=== PATIENT | female | born 1965 | race Caucasian/White ===

== ENCOUNTER 2016-11-26 18:51 | Emergency (ER) | payer SELFPAY ==
[~2016-11-26] VITALS: Ht 170.2 cm; Wt 61.2 kg
[2016-11-26 19:05] VITALS: BP 129/93
[2016-11-26] MEDS ORDERED: MECLIZINE 12.5 MG TABLET. PO ONE (20:15)
[2016-11-26] MEDS ORDERED: HYDROcodone/APAP 5/325MG 1 TAB TABLET PO ONE (20:15)
[2016-11-26] MEDS ORDERED: ONDANSETRON ODT 4 MG TAB.RAPDIS PO ONE (20:15)
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
== END 2016-11-26 20:12 | disposition home or self-care (01) ==
LOC: ER 18:51
DX: S09.22XA Traumatic rupture of left ear drum, initial encounter (principal); S40.021A Contusion of right upper arm, initial encounter; Z88.5 Allergy status to narcotic agent; Z88.1 Allergy status to other antibiotic agents; Y08.89XA Assault by other specified means, initial encounter; Y93.89 Activity, other specified; Y99.8 Other external cause status; Y92.89 Other specified places as the place of occurrence of the external cause
CPT/HCPCS: 99284; J8597; Q0162

== ENCOUNTER 2017-05-06 03:40 | Emergency (ER) | payer SELFPAY ==
[~2017-05-06] VITALS: Ht 170.2 cm; Wt 62.6 kg
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
[2017-05-06 04:40] LABS: BACTERIA,URINE FEW /HPF (0-FEW); BILIRUBIN,URINE NEG (NEG); CLARITY,URINE CLEAR; COLOR,URINE YELLOW; GLUCOSE,URINE NEG (NEG); NITRITE,URINE NEG (NEG); RBC,URINE 0 /HPF (0-2); SQUAMOUS EPITHELIAL CELL,UR MOD /LPF; UROBILINOGEN,URINE 2 mg/dL (0.2 mg/dL)
[2017-05-06 04:41] LABS: TRICHOMONAS,URINE PRESENT
[2017-05-06 05:08] LABS: INFLUENZA A PATIENT NEGATIVE (NEGATIVE); INFLUENZA B PATIENT NEGATIVE (NEGATIVE)
[2017-05-06] MEDS ORDERED: GUAI1TBM10 PO (05:17)
[2017-05-06] MEDS ORDERED: DOXY100C14 PO (05:17)
[2017-05-06] MEDS ORDERED: ALBU6.7H IH (05:17)
[2017-05-06] MEDS ORDERED: METR500T PO (05:17)
[2017-05-06] MEDS ORDERED: DOXYCYCLINE HYCLATE 100 MG TABLET PO ONE (05:30)
[2017-05-06] MEDS ORDERED: cefTRIAXone IM 250 MG VIAL IM ONE (05:30)
[2017-05-06 05:37] VITALS: BP 117/75
--- NOTE | 2017-05-06 06:27 | EKG ---
[address] [address] Test Date: 2017-05-06 Test Time: 04:28:42 Pat Name: FLACO LENZ Department: Room: Gender: F Applications Consultant: TANNA : 1965 Requested By: HAYDEN CAPONE Order Number: [id number] Reading MD: Wilfredo Gant Measurements Intervals [place] Rate: 86 P: 72 [place]: 152 QRS: 83 QRSD: 78 T: 60 QT: 336 QTc: 405 Interpretive Statements SINUS RHYTHM NONSPECIFIC ST-T WAVE CHANGES. RI6.01 No previous ECG available for comparison Electronically Signed On 05-08-2017 10:07:03 FILM PRINTER by Wilfredo Gant
--- NOTE | 2017-05-06 07:13 | RAD ---
Chest, 2 views, 05/06/2017: History: Cough The heart size is normal. No pulmonary infiltrates are seen. There is no evidence of pleural fluid. IMPRESSION: No acute cardiopulmonary abnormality is detected.
[2017-05-07 15:09] LABS: CHLAMYDIA PROBE Positive (Negative)
== END 2017-05-06 05:37 | disposition home or self-care (01) ==
LOC: ER 03:40
DX: A59.01 Trichomonal vulvovaginitis (principal); J40 Bronchitis, not specified as acute or chronic; F17.210 Nicotine dependence, cigarettes, uncomplicated; Z88.5 Allergy status to narcotic agent; Z88.1 Allergy status to other antibiotic agents
CPT/HCPCS: 36415; 71046; 81001; 87086; 87491; 87591; 87804; 93005; 96372; 99285; J0696

== ENCOUNTER 2017-06-23 20:52 | Emergency (ER) | payer SELFPAY ==
[~2017-06-23] VITALS: Ht 170.2 cm; Wt 59.0 kg
[~2017-06-23 20:52] MED LIST: ALBU6.7H IH; DOXY100C14 PO; GUAI1TBM10 PO; METR500T PO
[2017-06-23] MEDS ORDERED: IBUPROFEN 600 MG TABLET. PO ONE (21:30)
[2017-06-23] MEDS ORDERED: traMADol 50 MG TABLET PO ONE (21:30)
--- NOTE | 2017-06-23 22:02 | RAD ---
CT HEAD AND CERVICAL SPINE WO dated 06/23/2017 9:39 PM Indication: Head pain neck [id number] Trauma from fall, headache and neck pain. No priors.. Comparison: No comparison is available. Technique: Contiguous axial imaging the head was performed from skull base to vertex. In addition, axial imaging of the cervical spine acquired with thin cut coronal and sagittal reconstruction. One or more of the following individualized dose reduction techniques were utilized for this examination: 1. Automated exposure control 2. Adjustment of the mA and/or kV according to patient size 3. Use of iterative reconstruction technique Findings: Ventricles and sulci are within normal limits for age. No midline shift or mass effect. Brain parenchyma is of normal attenuation. No hemorrhage or extra-axial collection. Posterior fossa and brainstem unremarkable. Minimal patchy low density in the right frontal white matter, nonspecific. Visualized paranasal sinuses and mastoid air cells are clear. No apparent calvarial abnormality. Images of the cervical spine acquired from skull base to mid T1. Straightening of the normal cervical lordosis, otherwise sagittal alignment is anatomic. Vertebral body heights are maintained. No prevertebral soft tissue swelling. Posterior elements are intact. No evidence of fracture. Mild hypertrophic change of the superior and inferior endplates throughout. Multilevel uncovertebral spurring. Mild broad-based posterior disc osteophyte complex at C5-C6 results and mild to moderate central stenosis. There is also mild broad-based bulge at C6-C7 resulting in minimal central canal narrowing. Multilevel facet arthropathy. There is mild bilateral foraminal narrowing at C5-C6. Visualized soft tissue structures unremarkable. Emphysematous changes at the lung apices. IMPRESSION HEAD: 1. No evidence of acute intracranial hemorrhage or mass. 2. Minimal patchy low density in the right frontal white matter, nonspecific. Impression cervical spine: 1. No evidence of fracture or malalignment. 2. Mild to moderate multilevel spondylosis. Electronically signed by: Misael Keys MD (06/23/2017 9:59 PM) [id number]
[2017-06-23 22:30] VITALS: BP 110/59
[2017-06-23] MEDS ORDERED: TRAM-48 PO (22:33)
[2017-06-23] MEDS ORDERED: IBUP600T16 PO (22:33)
--- NOTE | 2017-06-23 22:34 | PHYS DOC ---
Past History Past Medical History: Other Past Surgical History: Cancer Surgery Smoking: Cigarettes, Less than 1pk/day Alcohol Use: None Drug Use: None Adult General Chief Complaint Chief Complaint: MECHANICAL FALL HPI HPI Patient is a 52-year-old female who presents here today after a fall complaining of back pain facial pain and neck pain. Patient reports pain around her scalp area with a headache. Patient denies any other symptomatology. Patient has a nausea vomiting diarrhea fevers shakes chills cough cold rhinorrhea. Patient has a loss of consciousness. Patient has any dizziness or presyncope prior to the episode. Patient reports she thinks she tripped over something. Patient has any abdominal trauma. Patient reports she is currently back to her normal baseline self other than the pain that she is expressing. Review of systems: Constitutional: Denies fever or chills Eyes: Denies change in visual acuity, redness, or eye pain HENT: Denies nasal congestion or sore throat All other review systems are negative except as documented in the history of present illness portion. Tetanus status up-to-date Physical exam: Constitutional: Well developed, well nourished, no acute distress, non-toxic appearance. HENT: Normocephalic, atraumatic, bilateral external ears normal, nose normal. Patient does have tenderness to palpation with palpation of her scalp. No significant soft tissue swelling is appreciated. Patient does have soft tissue swelling her right periorbital region with some erythema and abrasion. Eyes: EOMI, conjunctiva normal, no discharge. Neck: Normal range of motion, no tenderness, supple, no stridor. Cardiovascular:Heart rate regular rhythm Lungs & Thorax: Bilateral breath sounds clear to auscultation no respiratory distress Abdomen: Bowel sounds normal, soft, no tenderness, no masses, no pulsatile masses. Skin: Warm, dry, no erythema, no rash. Back: No tenderness, no CVA tenderness. Extremities: No tenderness, no cyanosis, no clubbing, ROM intact, no edema. Neurologic: Alert and oriented X 3, normal motor function, normal sensory function, no focal deficits noted. Psychologic: Affect normal, judgement normal, mood normal. CT scan of head and cervical spine negative for any acute fractures. Assessment and plan This is a 52-year-old female who presents here today secondary to head trauma and the pain that occurred secondary to a fall. Patient's ER workup is been unremarkable. Patient's CT of her head and C-spine are negative for any acute pathology per the radiologist. Patient has been given Ultram as well as ibuprofen to assist with her pain. Patient will be discharged home with a prescription for the same instructions follow-up with her primary care doctor for further management of her discomfort if it persists. Current Medications Current Medications Current Medications Medications (Trade) Dose Ordered Sig/Louie Start Time Stop Time Status Last Admin Dose Admin Ibuprofen (Motrin) 600 mg 1X ONCE 06/23/17 21:30 06/23/17 21:37 DC 06/23/17 21:44 600 MG Tramadol HCl (Ultram) 50 mg 1X ONCE 06/23/17 21:30 06/23/17 21:37 DC 06/23/17 21:45 50 MG Allergies Allergies Allergies Coded Allergies Type Severity Reaction Last Updated Verified codeine Allergy Unknown 11/26/16 Yes erythromycin base Allergy Unknown 11/26/16 Yes Current Patient Data Vital Signs Vital Signs Date Time Temp Pulse Resp B/P (MAP) Pulse Ox O2 Delivery O2 Flow Rate FiO2 06/23/17 21:45 18 18 Room Air 06/23/17 21:01 98.2 104 EKG EKG [] Radiology/Procedures Radiology/Procedures [] Course & Med Decision Making Course & Med Decision Making Pertinent Labs and Imaging studies reviewed. (See chart for details) [] Dragon Disclaimer Dragon Disclaimer This electronic medical record was generated, in whole or in part, using a voice recognition dictation system. Departure Departure: Impression: Primary Impression: Head injury Additional Impression: Periorbital ecchymosis of right eye Disposition: HOME, SELF-CARE Condition: IMPROVED Referrals: PCP,NO (PCP) Patient Instructions: Head Injury, Adult Scripts Tramadol Hcl (ULTRAM) 50 Mg Tablet 50 MG PO PRN Q6HRS Y for PAIN, #10 TAB Prov: GERALD BRIAN MD 06/23/17 Ibuprofen (IBUPROFEN) 600 Mg Tablet 600 MG PO QID Y for PAIN, #20 Prov: GERALD BRIAN MD 06/23/17 Problem Qualifiers GERALD BRIAN MD Jun 23, 2017 22:34
== END 2017-06-23 22:35 | disposition home or self-care (01) ==
LOC: ER 20:52
DX: S09.90XA Unspecified injury of head, initial encounter (principal); S05.11XA Contusion of eyeball and orbital tissues, right eye, initial encounter; M54.2 Cervicalgia; M54.9 Dorsalgia, unspecified; Z88.5 Allergy status to narcotic agent; F17.210 Nicotine dependence, cigarettes, uncomplicated; Z88.1 Allergy status to other antibiotic agents; W19.XXXA Unspecified fall, initial encounter; Y93.89 Activity, other specified; Y99.8 Other external cause status; Y92.89 Other specified places as the place of occurrence of the external cause
CPT/HCPCS: 70450; 72125; 99284-25

== ENCOUNTER 2017-08-28 11:05 | Inpatient (IN) | payer SELFPAY ==
[~2017-08-28] VITALS: Ht 170.2 cm; Wt 59.0 kg
[~2017-08-28 11:05] MED LIST changes: +IBUP600T16 PO; +TRAM-48 PO
[2017-08-28 11:33] LABS: BASO % 0 % (0-3); EOS % 0 % (0-3); HEMATOCRIT 48.4 % (36.0-47.0); HEMOGLOBIN 16.5 g/dL (12.0-15.5); LYMPH # 0.7 x10^3/uL (1.0-4.8); LYMPH % 5 % (24-48); MEAN CORPUSCULAR HEMOGLOBIN 32 pg (25-35); MEAN CORPUSCULAR HGB CONC 34 g/dL (31-37); MEAN CORPUSCULAR VOLUME 93 fL (79-100); MONO # 0.2 x10^3/uL (0.0-1.1); MONO % 1 % (0-9); NEUT # 12.1 x10^3uL (1.8-7.7); NEUT % 93 % (31-73); PLATELET COUNT 265 x10^3/uL (140-400); RED BLOOD COUNT 5.19 x10^6/uL (3.50-5.40); RED CELL DISTRIBUTION WIDTH 12.8 % (11.5-14.5); WHITE BLOOD COUNT 12.9 x10^3/uL (4.0-11.0)
[2017-08-28] MEDS ORDERED: IV NORMAL SALINE 1,000ML 1,000 ML IV ONE ×4 (11:45→13:45)
[2017-08-28 11:46] LABS: ALBUMIN 3.1 g/dL (3.4-5.0); ALBUMIN/GLOBULIN RATIO 0.8 (1.0-1.7); CALCIUM 9.2 mg/dL (8.5-10.1); CREATININE 0.9 mg/dL (0.6-1.0); GFR 65.2; POTASSIUM 3.8 mmol/L (3.5-5.1); TOTAL BILIRUBIN 2.2 mg/dL (0.2-1.0); TOTAL PROTEIN 7.2 g/dL (6.4-8.2)
[2017-08-28] MEDS ORDERED: ONDANSETRON PF 4 MG/2 ML VIAL. IV ONE (11:50)
--- NOTE | 2017-08-28 11:58 | ED.ADGEN ---
Past History Past Medical History: No Pertinent History Past Surgical History: No Surgical History Smoking: Cigarettes, Less than 1pk/day Alcohol Use: Occasionally Drug Use: Cocaine Adult General Chief Complaint Chief Complaint Nausea vomiting, abdominal pain HPI HPI Patient is a 52-year-old female who presents with nausea vomiting and left flank pain intermittent 4 days. Patient last vomited prior to ED arrival. Vomit is faint stomach contents. No constipation diarrhea. No chest pain, shortness breath, fever chills or sweats. Smokes and drinks occasional alcohol. Recent crack cocaine usage. No prior abdominal surgeries. No other acute symptoms or complaints.[] Review of Systems Review of Systems Review symptoms as per history of present illness. All other review symptoms are negative. All other systems were reviewed and found to be within normal limits, except as documented in this note. Current Medications Current Medications Current Medications Medications (Trade) Dose Ordered Sig/Louie Start Time Stop Time Status Last Admin Dose Admin Ceftriaxone Sodium 1 gm/ Sodium Chloride 50 ml @ 100 mls/hr 1X ONCE 08/28/17 13:30 08/28/17 13:59 UNV Iohexol (Omnipaque 300 Mg/ml) 75 ml 1X ONCE 08/28/17 13:00 08/28/17 13:01 DC 08/28/17 12:50 75 ML Ondansetron HCl (Zofran) 8 mg 1X ONCE 08/28/17 11:50 08/28/17 11:51 DC 08/28/17 11:38 8 MG Sodium Chloride 1,000 ml @ 1,000 mls/hr 1X ONCE 08/28/17 12:45 08/28/17 13:44 08/28/17 12:46 1,000 MLS/HR Allergies Allergies Allergies Coded Allergies Type Severity Reaction Last Updated Verified Penicillins Allergy Mild 08/28/17 Yes codeine Allergy Unknown 11/26/16 Yes erythromycin base Allergy Unknown 11/26/16 Yes Physical Exam Physical Exam Constitutional: Well developed, well nourished, no acute distress, non-toxic appearance. [] HENT: Normocephalic, atraumatic, bilateral external ears normal, oropharynx moist, nose normal. [] Eyes: PERRLA, EOMI. [] Neck: Normal range of motion, no tenderness. [] Cardiovascular:Heart rate regular rhythm [] Lungs & Thorax: Bilateral breath sounds clear to auscultation [] Abdomen: Bowel sounds normal, soft. [] Skin: Warm, dry. [] Back: No tenderness. [] Extremities: No tenderness, no edema. [] Neurologic: Alert and oriented X 3, normal motor function, normal sensory function, no focal deficits noted. [] Psychologic: Affect normal, judgement normal, mood normal. [] Current Patient Data Vital Signs Vital Signs Date Time Temp Pulse Resp B/P (MAP) Pulse Ox O2 Delivery O2 Flow Rate FiO2 08/28/17 12:04 99.7 106 18 128/78 (95) 93 Room Air Lab Results Laboratory Tests Test 08/28/17 11:20 08/28/17 12:00 White Blood Count 12.9 x10^3/uL (4.0-11.0) H Red Blood Count 5.19 x10^6/uL (3.50-5.40) Hemoglobin 16.5 g/dL (12.0-15.5) H Hematocrit 48.4 % (36.0-47.0) H Mean Corpuscular Volume 93 fL (79-100) Mean Corpuscular Hemoglobin 32 pg (25-35) Mean Corpuscular Hemoglobin Concent 34 g/dL (31-37) Red Cell Distribution Width 12.8 % (11.5-14.5) Platelet Count 265 x10^3/uL (140-400) Neutrophils (%) (Auto) 93 % (31-73) H Lymphocytes (%) (Auto) 5 % (24-48) L Monocytes (%) (Auto) 1 % (0-9) Eosinophils (%) (Auto) 0 % (0-3) Basophils (%) (Auto) 0 % (0-3) Neutrophils # (Auto) 12.1 x10^3uL (1.8-7.7) H Lymphocytes # (Auto) 0.7 x10^3/uL (1.0-4.8) L Monocytes # (Auto) 0.2 x10^3/uL (0.0-1.1) Eosinophils # (Auto) 0.0 x10^3/uL (0.0-0.7) Basophils # (Auto) 0.0 x10^3/uL (0.0-0.2) Sodium Level 134 mmol/L (136-145) L Potassium Level 3.8 mmol/L (3.5-5.1) Chloride Level 97 mmol/L (98-107) L Carbon Dioxide Level 24 mmol/L (21-32) Anion Gap 13 (6-14) Blood Urea Nitrogen 22 mg/dL (7-20) H Creatinine 0.9 mg/dL (0.6-1.0) Estimated GFR (Cockcroft-Gault) 65.2 BUN/Creatinine Ratio 24 (6-20) H Glucose Level 223 mg/dL (70-99) H Lactic Acid Level 2.8 mmol/L (0.4-2.0) H Calcium Level 9.2 mg/dL (8.5-10.1) Total Bilirubin 2.2 mg/dL (0.2-1.0) H Aspartate Amino Transferase (AST) 43 U/L (15-37) H Alanine Aminotransferase (ALT) 43 U/L (14-59) Alkaline Phosphatase 90 U/L (46-116) Troponin I Quantitative < 0.017 ng/mL (0-0.055) Total Protein 7.2 g/dL (6.4-8.2) Albumin 3.1 g/dL (3.4-5.0) L Albumin/Globulin Ratio 0.8 (1.0-1.7) L Lipase 114 U/L (73-393) Ethyl Alcohol Level < 10 mg/dL (0-10) Urine Collection Type Unknown Urine Color Kia Urine Clarity Cloudy Urine pH 6.0 Urine Specific [place] 1.015 Urine Protein 100 mg/dl (NEG-TRACE) Urine Glucose (UA) Neg mg/dL (NEG) Urine Ketones (Stick) Neg mg/dL (NEG) Urine Blood Mod (NEG) Urine Nitrite Pos (NEG) Urine Bilirubin Neg (NEG) Urine Urobilinogen Dipstick 2 mg/dL (0.2 mg/dL) Urine Leukocyte Esterase Mod (NEG) Urine RBC 3-5 /HPF (0-2) Urine WBC >40 /HPF (0-4) Urine Squamous Epithelial Cells Occ /LPF Urine Bacteria Many /HPF (0-FEW) Urine Mucus Slight /LPF Urine Opiates Screen Neg (NEG) Urine Methadone Screen Neg (NEG) Urine Barbiturates Neg (NEG) Urine Phencyclidine Screen Neg (NEG) Urine Amphetamine/Methamphetamine Neg (NEG) Urine Benzodiazepines Screen Neg (NEG) Urine Cocaine Screen Pos (NEG) Urine Cannabinoids Screen Neg (NEG) Urine Ethyl Alcohol Neg (NEG) EKG EKG EKG: Sinus tach, rate 107, specific ST-T wave changes, QTC 419.] Radiology/Procedures Radiology/Procedures [CT abdomen pelvis: Bilateral thickening, suggestive cystitis, pyelonephritis no evidence of obstructive uropathy per radiology report] Course & Med Decision Making Course & Med Decision Making Pertinent Labs and Imaging studies reviewed. (See chart for details) [Acute pyelonephritis nausea vomiting. Elevated lactic acid. . IV fluid bolus given. Antibiotics started. Will admit to the hospital service for further treatment.] Final Impression Final Impression [1. Acute pyelonephritis 2. Nausea and vomiting 3. Cocaine abuse ] Dragon Disclaimer Dragon Disclaimer This electronic medical record was generated, in whole or in part, using a voice recognition dictation system. PETER DAWSON DO Aug 28, 2017 11:58
[2017-08-28 12:24] LABS: AMPHETAMINE/METHAMPHETAMINE NEG (NEG); BARBITURATES NEG (NEG); BENZODIAZEPINES NEG (NEG); CANNABINOIDS NEG (NEG); COCAINE POS (NEG); METHADONE NEG (NEG); OPIATES NEG (NEG); PHENCYCLIDINE NEG (NEG)
[2017-08-28 12:27] LABS: BACTERIA,URINE MANY /HPF (0-FEW); BILIRUBIN,URINE NEG (NEG); CLARITY,URINE CLOUDY; COLOR,URINE AMBER; GLUCOSE,URINE NEG (NEG); NITRITE,URINE POS (NEG); SQUAMOUS EPITHELIAL CELL,UR OCC /LPF; UROBILINOGEN,URINE 2 mg/dL (0.2 mg/dL); WBC,URINE >40 /HPF (0-4)
--- NOTE | 2017-08-28 12:35 | EKG ---
[address] [address] Test Date: 2017-08-28 Test Time: 10:31:22 Pat Name: FLACO LENZ Department: Room: Gender: F Survey Data Technician: : 1965 Requested By: PETER DAWSON Order Number: [id number] Reading MD: Measurements Intervals [place] Rate: P: [place]: QRS: QRSD: T: QT: QTc: Interpretive Statements
[2017-08-28] MEDS ORDERED: IOHEXOL 300 MG/ML 75 ML VIAL. IV ONE (13:00)
--- NOTE | 2017-08-28 13:15 | RAD ---
PQRS Compliance Statement: One or more of the following individualized dose reduction techniques were utilized for this examination: 1. Automated exposure control 2. Adjustment of the mA and/or kV according to patient size 3. Use of iterative reconstruction technique CT abdomen/pelvis without contrast 08/28/2017 12:30 PM INDICATION: Left flank pain COMPARISON: None available TECHNIQUE: Multiple axial CT images of the abdomen and pelvis were obtained without intravenous contrast. Coronal and sagittal reformats are provided. FINDINGS: There is subsegmental atelectasis at the right lung base. There is mild bronchial wall thickening as may be seen in the setting of bronchitis.. Heart size is within normal limits. Evaluation of the solid abdominal viscera is limited by lack of intravenous contrast. No suspicious hepatic masses are identified. Spleen, bilateral adrenal glands, and pancreas are normal in appearance. Gallbladder is present without adjacent inflammatory changes. The abdominal aorta is normal in course and caliber. Mild atherosclerotic changes of the abdominal aorta are present. There are no pathologically enlarged lymph nodes in the abdomen and pelvis. There is no abdominal free fluid. There is no free intraperitoneal air. There is symmetric enhancement of the renal parenchyma. There is bilateral urothelial enhancement with a small left extrarenal pelvis. No calculi are identified within the kidneys, ureters or urinary bladder. Calcifications within the pelvis favored to be associated with phleboliths rather than ureteral calculi. There is circumferential bladder wall thickening and mild pericystic inflammatory changes. Uterus and adnexa are normal in appearance. Small and large bowel are normal in caliber. There is no evidence for bowel obstruction. There are no pericolonic inflammatory changes.. The appendix is not definitively visualized. IMPRESSION: 1. Circumferential bladder wall thickening with pericystic inflammatory changes and urothelial enhancement involving the ureters is most suggestive of cystitis and pyelitis. Correlate clinically for pyelonephritis. No renal parenchymal changes are visualized. 2. No evidence for obstructive uropathy. Calcifications within the pelvis favor vascular etiology such as phleboliths rather than ureteral calculi. Electronically signed by: Betina Mccray MD (08/28/2017 1:11 PM) [facility]
[2017-08-28] MEDS ORDERED: cefTRIAXone IV Push 1 GM VIAL. IVP ONE (13:30)
[2017-08-28] MEDS ORDERED: ONDANSETRON PF 4 MG/2 ML VIAL. IV PRN (13:45)
[2017-08-28 15:22] VITALS: BP 99/66
[2017-08-28 19:30] VITALS: BP 110/67
[2017-08-28 20:35] VITALS: BP 110/67
[2017-08-28 23:20] VITALS: BP 116/81
[2017-08-29 05:37] VITALS: BP 99/68
[2017-08-29] MEDS: IV NORMAL SALINE 1,000ML 1,000 ML IV SCH ×2 (11:00→15:56)
[2017-08-29 11:17] LABS: BASO % 0 % (0-3); EOS # 0.1 x10^3/uL (0.0-0.7); EOS % 1 % (0-3); HEMATOCRIT 40.3 % (36.0-47.0); HEMOGLOBIN 13.7 g/dL (12.0-15.5); LYMPH # 1.3 x10^3/uL (1.0-4.8); LYMPH % 14 % (24-48); MEAN CORPUSCULAR HEMOGLOBIN 32 pg (25-35); MEAN CORPUSCULAR HGB CONC 34 g/dL (31-37); MEAN CORPUSCULAR VOLUME 93 fL (79-100); MONO # 1.3 x10^3/uL (0.0-1.1); MONO % 14 % (0-9); NEUT # 6.6 x10^3uL (1.8-7.7); NEUT % 71 % (31-73); PLATELET COUNT 217 x10^3/uL (140-400); RED BLOOD COUNT 4.32 x10^6/uL (3.50-5.40); WHITE BLOOD COUNT 9.3 x10^3/uL (4.0-11.0)
[2017-08-29 11:25] LABS: ALBUMIN 2.2 g/dL (3.4-5.0); ALBUMIN/GLOBULIN RATIO 0.6 (1.0-1.7); CALCIUM 7.9 mg/dL (8.5-10.1); CREATININE 0.5 mg/dL (0.6-1.0); GFR 128.6; POTASSIUM 3.5 mmol/L (3.5-5.1); TOTAL BILIRUBIN 0.7 mg/dL (0.2-1.0); TOTAL PROTEIN 5.9 g/dL (6.4-8.2)
[2017-08-29 11:45] VITALS: BP 99/64
[2017-08-29 16:15] VITALS: BP 96/58
--- NOTE | 2017-08-29 17:47 | HP ---
ADMIT DATE: 08/28/2017 HISTORY OF PRESENT ILLNESS: The patient is a 52-year-old female patient who came to the Emergency Room complaining of nausea, vomiting, flank pain that has been intermittent for the last 4 days. She last vomited prior to arrival to the Emergency Room. She denied any diarrhea. Did complain of fever and chills. She has never had similar symptoms like this before. She was evaluated in the Emergency Room, was found to be septic. She has leukocytosis and she has also lactic acidosis. Urinalysis showed the urine was positive for nitrite and leukocyte esterase and more than 40 wbc's and many bacteria. She was pancultured and was admitted, and was started on IV ceftriaxone. PAST MEDICAL HISTORY: Significant for hepatitis C. PAST SURGICAL HISTORY: Unremarkable. ALLERGIES: She is allergic to PENICILLIN, CODEINE, ERYTHROMYCIN BASE. MEDICATIONS: She is currently on no medication. FAMILY HISTORY: She is the youngest of 13. She has apparently a very strong family history of cancer. Her mother at age of 76 because of lung cancer. Father at age of 74 because of end-stage renal disease. SOCIAL HISTORY: She is , has no children. She smokes about 7 cigarettes a day, has been a smoker since she was 12 years old. She quit about 7 days ago. She does not drink alcohol; however, she smokes cocaine, has been doing this on and off for almost 10 years. She is a supervisor [employer]. REVIEW OF SYSTEMS: The patient denied any blurring of vision, cataract, glaucoma or macular degeneration. Denied any earache, tinnitus or sensorineural deafness. Denied any nosebleeds, stuffy nose or postnasal drip. Denied any sore throat, sore tongue, toothache, hoarseness of voice or difficulty swallowing. Did complain of nausea and vomiting, but denied any diarrhea or constipation. Denied any hematemesis, melena or hematochezia. She did complain of dysuria and frequency, but denied any hematuria. Denied any chest pain, shortness of breath, but did complain of cough with greenish sputum. Did complain of chills, rigors and fever. Denied any dizziness, lightheadedness, or vertigo. PHYSICAL EXAMINATION: GENERAL: On arrival to the Emergency Room, she was somewhat pale, but no jaundice, cyanosis, lymphadenopathy or thyromegaly. No jugular venous distension. No limb edema. VITAL SIGNS: Her heart rate was 89, blood pressure was 99/66, temperature was 97.8, respiratory rate was 18 and oxygen saturation was 95%. HEAD, EYES, EARS, NOSE AND THROAT: Showed normocephalic, atraumatic. NECK: Supple. HEART: Showed normal first and second heart sounds. No gallop, rub or murmur. CHEST: Clear to auscultation. No crepitation or rhonchi. ABDOMEN: Distended, soft, and nontender. No guarding or rigidity. No organomegaly. Hernial orifice intact. Bowel sounds normal. NEUROLOGIC: She is awake, alert, responding appropriately. Cranial nerves intact. EXTREMITIES: She moves extremities without difficulty. LABORATORY and DIAGNOSTIC DATA: On admission showed a white cell count 12,900, hemoglobin 16.5, hematocrit 48, MCV 93, and platelet count of 265,000 with normal manual differential. Her chemistry showed a serum sodium 134, potassium 3.8, chloride 97, bicarbonate 24, anion gap of 13, BUN 22, creatinine 0.9, estimated GFR was 65 mL per minute. Her glucose was 223. Calcium was 9.2, total bilirubin is 2.2 and AST is slightly elevated. ALT, alkaline phosphatase normal. Total protein 7.2, albumin was 3.1. Her urinalysis showed the urine was [place], cloudy with a pH of 6, specific gravity of 1.015. Large amount of protein. Negative for glucose, ketones. Moderate amount of blood. Positive for nitrite. Moderate amount of leukocyte esterase. She has 3-5 rbc's, more than 40 wbc's, many bacteria. Her toxic screen was positive for cocaine. She did have a CT scan of the abdomen and pelvis, which showed that she has circumferential bladder wall thickening with pericystic inflammatory changes and urothelial enhancement involving the ureters is most suggestive of cystitis and pyelitis. No evidence of obstructive uropathy. Calcification within the pelvis favors ____ rather than ureteral calculi. PLAN: The patient was admitted with sepsis likely due to pyelonephritis, cystitis with lactic acidosis. She was started on IV fluid, IV Rocephin. We will obviously send urine and blood for culture and sensitivity. Continue with the antibiotic and IV fluid and await the results of culture and sensitivity. She also was admitted with nausea, vomiting and cocaine abuse. JAYANT BALTAZAR MD DR: JENNIFER/efe JOB#: [id number] / [id number]
[2017-08-29 19:44] VITALS: BP 95/57
[2017-08-29] MEDS: LACTOBACILLUS RHAMNOSUS GG 1 CAPSULE. PO SCH (21:06)
[2017-08-29 22:30] VITALS: BP 95/62
--- NOTE | 2017-08-30 02:02 | PN ---
DATE: 08/29/2017 SUBJECTIVE: The patient is resting slightly propped up in bed, continue to complain generally unwell with aches and pains in her joint and her back; however, she has no further episodes of nausea, vomiting, has been giving her food. She continued to have cough with greenish sputum, but denied any dysuria, frequency or hematuria. PHYSICAL EXAMINATION: GENERAL: When I examined her this evening, she was resting slightly propped up, still complaining of being cold. She was pale with no jaundice, cyanosis, or thyromegaly. No jugular venous distension. No limb edema. VITAL SIGNS: Her heart rate was 80, blood pressure was 99/64, temperature was 98.4, respiratory rate 20, and oxygen saturation was 95% on room air. HEAD, EYES, EARS, NOSE AND THROAT: Showed normocephalic, atraumatic. NECK: Supple. HEART: Showed normal first and second sounds. No gallop, rub or murmur. CHEST: Clear to auscultation. No crepitation or rhonchi. ABDOMEN: Distended, soft, nontender. No guarding or rigidity. No organomegaly. All hernial orifices intact. Bowel sounds normal. NEUROLOGIC: She is sleepy, but arousable. All cranial nerves intact. She moves extremities without difficulty. She ambulates without assistance or assistive devices. Her intake over the last 24 hours was 4885, no output was recorded. LABORATORY DATA: Her lab work this morning showed that her serum sodium 141, potassium 3.5, chloride 107, bicarbonate 29, anion gap of 5, BUN 9, creatinine 0.5, estimated GFR was 128 mL per minute. Her glucose 100, calcium was 7.9. Total bilirubin, AST, ALT, alkaline phosphatase were normal. Total protein 5.9, albumin 2.2. Her white cell count was 9300, hemoglobin 13.7, hematocrit 40, MCV 93, and platelet count 217,000. Blood and urine cultures so far were negative. ASSESSMENT AND PLAN: Sepsis due to pyelonephritis, improving. Nausea and vomiting, subsiding. Cocaine abuse and hepatitis C. We will continue with IV fluid, continue with antibiotics. Await the result of the culture and sensitivity. JAYANT BALTAZAR MD DR: JENNIFER/efe JOB#: [id number] / [id number]
[2017-08-30] MEDS: IV NORMAL SALINE 1,000ML 1,000 ML IV SCH ×2 (03:54→06:13)
[2017-08-30 05:20] VITALS: BP 107/67
[2017-08-30] MEDS: LACTOBACILLUS RHAMNOSUS GG 1 CAPSULE. PO SCH (08:08)
[2017-08-30 08:59] LABS: HEMATOCRIT 43.9 % (36.0-47.0); HEMOGLOBIN 14.8 g/dL (12.0-15.5); RED BLOOD COUNT 4.68 x10^6/uL (3.50-5.40); WHITE BLOOD COUNT 6.7 x10^3/uL (4.0-11.0)
[2017-08-30 09:14] LABS: ALBUMIN 2.2 g/dL (3.4-5.0); ALBUMIN/GLOBULIN RATIO 0.6 (1.0-1.7); CALCIUM 8.3 mg/dL (8.5-10.1); CREATININE 0.5 mg/dL (0.6-1.0); GFR 128.6; POTASSIUM 3.9 mmol/L (3.5-5.1); TOTAL BILIRUBIN 0.4 mg/dL (0.2-1.0); TOTAL PROTEIN 6.1 g/dL (6.4-8.2)
[2017-08-30 10:49] VITALS: BP 95/64
[2017-08-30] MEDS ORDERED: CEPH-264 PO (12:36)
--- NOTE | 2017-08-30 22:32 | PN ---
DATE: 08/30/2017 SUBJECTIVE: The patient is resting, slightly propped up in bed, in no apparent distress. She is generally feeling better. Her urine culture has grown more than 100,000 colony forming units per mL; however, the identification and sensitivity still pending. OBJECTIVE: GENERAL: When I examined her today, she looked well and was clearly in no apparent respiratory distress, pale, but no jaundice, cyanosis, lymphadenopathy or thyromegaly. No jugular venous distention. No limb edema. VITAL SIGNS: Her heart rate was 78, blood pressure was 95/64, temperature was 98.1, respiratory rate 20, and oxygen saturation was 96%. HEAD, EYES, EARS, NOSE AND THROAT: Normocephalic, atraumatic. NECK: Supple. HEART: Showed normal first and second heart sounds. No gallop, rub or murmur. CHEST: Clear to auscultation. No crepitation or rhonchi. ABDOMEN: Distended, soft, nontender. No guarding or rigidity. No organomegaly. All hernial orifice intact. Bowel sounds normal. NEUROLOGIC: She was awake, alert, responding appropriately. All cranial nerves are intact. She moves extremities without difficulty. She ambulates without assistance or assistive devices. Her intake over the last 24 hours was 4885. No output was recorded. LABORATORY DATA: Her lab work this morning showed a white cell count of 6700, hemoglobin 14, hematocrit 43, MCV 94 and a platelet count of 211,000. Her chemistry showed a serum sodium of 141, potassium 3.9, chloride 109, bicarbonate 25, anion gap of 7, BUN of 8, creatinine 0.5, estimated GFR was 128 mL per minute. Her glucose was 103, calcium was 8.3. Total bilirubin, AST, ALT, alkaline phosphatase were normal. Total protein 6.1, albumin was 2.2. Her urine and blood cultures are so far negative; however, her urine culture has grown more than 200,000 colony forming units per mL of gram-negative rods and the identification and sensitivity is still pending. ASSESSMENT: Sepsis due to pyelonephritis, nausea and vomiting subsided, cocaine abuse, and hepatitis C. PLAN: I will continue with the IV fluid, IV antibiotic in the form of ceftriaxone. I offered to the patient that she can go home on oral cephalosporin. The patient wanted to wait until that she gets the result of the culture and sensitivity. JAYANT BALTAZAR MD DR: JENNIFER/efe JOB#: [id number] / [id number]
== END 2017-08-30 12:50 | disposition home or self-care (01) | DRG 872 ==
LOC: ER 11:05 → 1 SOUTH 13:25
PROVIDERS: ADMIT Internal Medicine; ATTEND Internal Medicine
DX: A41.9 Sepsis, unspecified organism (principal); N10 Acute pyelonephritis; B19.20 Unspecified viral hepatitis C without hepatic coma; F14.10 Cocaine abuse, uncomplicated; F17.210 Nicotine dependence, cigarettes, uncomplicated; Z80.1 Family history of malignant neoplasm of trachea, bronchus and lung; Z88.0 Allergy status to penicillin; Z88.1 Allergy status to other antibiotic agents; Z88.5 Allergy status to narcotic agent; Z84.1 Family history of disorders of kidney and ureter
CPT/HCPCS: 36415; 74177; 80053; 80307; 81001; 83605; 83690; 84484; 85025; 85027; 87040; 87086; 93005; 96361; 96374; 96375; G0480; J0696; J2405; Q9967; 99285-25; G0479; J7030